=== PATIENT | male | born 1970 | race Caucasian/White ===

== ENCOUNTER → 2018-06-10 | Outpatient (CLI) | payer OTHER ==
--- NOTE | 2018-06-10 11:45 | Diagnostic Imaging Report ---
Radiographs of the right wrist - 3 views HISTORY: Pain. Trauma. COMPARISON: None available. FINDINGS: Bones: No acute displaced fracture. Osseous alignment is within normal limits. Joints: Mild scattered degenerative change. No osseous erosion. Soft tissues: Soft tissue swelling IMPRESSION: Soft tissue swelling and scattered degenerative change about the right wrist. Signed by: Dr. Guido Reese M.D. on 06/10/2018 11:41 AM
== END ==
LOC: RAD 11:09
PROVIDERS: ATTEND Family Medicine
DX: S63.501A Unspecified sprain of right wrist, initial encounter (principal)

== ENCOUNTER → 2021-02-24 | Outpatient (CLI) | payer OTHER | LOC: MRI 14:45 | PROVIDERS: ATTEND Family Medicine | DX: M51.26 Other intervertebral disc displacement, lumbar region (principal) | CPT/HCPCS: 72148 ==